=== PATIENT | female | born 2000 | race African-American/Black ===

== ENCOUNTER 2020-02-19 10:40 | Emergency (ER) | payer OTHER, SELFPAY ==
[2020-02-20 14:53] LABS: SARS-CoV-2 MS2 Positive; SARS-CoV-2 N Gene Negative; SARS-CoV-2 S Gene Negative; SARS-CoV-2 orf1ab Negative
== END 2020-02-19 11:05 | disposition home or self-care (01) ==
LOC: ERS 10:40
DX: Z20.828 Contact with and (suspected) exposure to other viral communicable diseases (principal); J45.909 Unspecified asthma, uncomplicated; Z79.899 Other long term (current) drug therapy
CPT/HCPCS: 87635; 99283; U0003

== ENCOUNTER 2020-04-05 14:46 | Emergency (ER) | payer OTHER ==
[2020-04-06 12:10] LABS: SARS-CoV-2 MS2 Positive; SARS-CoV-2 N Gene Negative; SARS-CoV-2 S Gene Negative; SARS-CoV-2 by NAA Not Detected (NotDetected); SARS-CoV-2 orf1ab Negative
== END 2020-04-05 15:09 | disposition home or self-care (01) ==
LOC: ERS 14:46
DX: Z20.828 Contact with and (suspected) exposure to other viral communicable diseases (principal); J45.909 Unspecified asthma, uncomplicated
CPT/HCPCS: 87635; 99283; U0003

== ENCOUNTER 2020-06-26 20:42 | Emergency (ER) | payer OTHER, SELFPAY | END 2020-06-26 23:04 | disposition home or self-care (01) | LOC: ERS 20:42 | DX: J02.9 Acute pharyngitis, unspecified (principal); J45.909 Unspecified asthma, uncomplicated | CPT/HCPCS: 87081; 87430; 99283 ==